=== PATIENT | male | born 1960 | race Caucasian/White ===

== ENCOUNTER 2019-04-27 14:24 | Emergency (ER) | payer OTHER ==
[2019-04-27] MEDS ORDERED: Ondansetron PF 4 MG/2 ML Vial ONE (14:36)
[2019-04-27] MEDS ORDERED: methylPREDNISolone Sod Succ/PF 125 MG/2 ML VIAL ONE (14:46)
[2019-04-27] MEDS ORDERED: Famotidine/PF 20 mg/2ml Vial ONE (14:46)
[2019-04-27] MEDS ORDERED: Water For Inject, Bacteriostat 30 ML ONE (14:47)
[2019-04-27 14:49] LABS: Hemoglobin 17.7 g/dL (14.0-18.0); Mean Corpuscular HGB CONC 34.1 g/dL (32.0-36.0); Mean Corpuscular Hemoglobin 30.6 pg (27.0-31.0); Mean Corpuscular Volume 89.8 fL (78.0-98.0); Mean Platelet Volume 8.2 fL (7.4-10.4); Platelet Count 297 thou/uL (130-400); RBC Distribution Width 11.8 % (11.5-14.5); Red Blood Cell (RBC) Count 5.78 mill/uL (4.70-6.10); White Blood Cell (WBC) Count 21.7 thou/uL (4.8-10.8)
[2019-04-27 15:01] LABS: ALT (SGPT) 39 U/L (8-55); AST (SGOT) 36 U/L (5-34); Albumin 4.8 g/dL (3.5-5.0); Alkaline Phosphatase 81 U/L (40-150); Anion Gap 17 mmol/L (10-20); BUN (Urea Nitrogen) 13 mg/dL (8.4-25.7); Bilirubin, Total 0.9 mg/dL (0.2-1.2); CK (CPK) 172 U/L (30-200); Calc. Creatinine Clearance 0 mL/min (70-130); Calcium 10.5 mg/dL (7.8-10.44); Carbon Dioxide 23 mmol/L (22-29); Chloride 104 mmol/L (98-107); Estimated GFR-MDRD 71; Glucose 190 mg/dL (70-105); Potassium 4.4 mmol/L (3.5-5.1); Protein, Total 8.8 g/dL (6.0-8.3); Sodium 140 mmol/L (136-145)
[2019-04-27 15:03] LABS: Eosinophils 2 % (0-10); Lymphocytes 14 % (21-51); MDiff Complete? YES; Monocytes 5 % (0-10); Neutrophil 78 % (42-75); Platelet Morphology Comment Appears Adequate; RBC Morphology Normal
[2019-04-27] MEDS ORDERED: Dicyclomine 20 MG TAB ONE (15:41)
[2019-04-27] MEDS ORDERED: Ketorolac Tromethamine 30 MG/ML VIAL ONE (15:41)
[2019-04-28 08:36] LABS: #Basophils 0.2 thou/uL (0.0-0.2); #Eosinphils 0.2 thou/uL (0.0-0.7); #Lymphocytes 3.1 thou/uL (1.20-3.40); #Monocytes 1.3 thou/uL (0.11-0.59); #Neutrophils 16.9 thou/uL (1.40-6.50); %Basophils 1.1 % (0.0-1.0); %Eosinophils 0.7 % (0.0-10.0); %Lymphocytes 14.4 % (21.0-51.0); %Neutrophils 77.8 % (42.0-75.0)
== END 2019-04-27 16:06 | disposition home or self-care (01) ==
LOC: SCSER 14:24
DX: T63.441A Toxic effect of venom of bees, accidental (unintentional), initial encounter (principal); T67.5XXA Heat exhaustion, unspecified, initial encounter; I10 Essential (primary) hypertension; E11.9 Type 2 diabetes mellitus without complications; Z79.82 Long term (current) use of aspirin; Z79.899 Other long term (current) drug therapy
CPT/HCPCS: 80053; 82550; 85025; 96361; 96374; 96375; J1885; J2405; J2930; S0028

== ENCOUNTER 2022-02-01 16:30 | Outpatient (CLI) | payer BC | END 2022-02-01 16:31 | disposition home or self-care (01) | LOC: SLEEPLAB 16:30 | PROVIDERS: ATTEND Family Medicine | DX: G47.33 Obstructive sleep apnea (adult) (pediatric) (principal); F51.9 Sleep disorder not due to a substance or known physiological condition, unspecified; G47.10 Hypersomnia, unspecified; G47.9 Sleep disorder, unspecified; R53.83 Other fatigue; F41.9 Anxiety disorder, unspecified; E11.9 Type 2 diabetes mellitus without complications | CPT/HCPCS: 95800 ==